=== PATIENT | male | born 1995 | race Caucasian/White ===

== ENCOUNTER 2023-05-26 13:27 | Observation (INO) | payer BC, OTHER ==
[2023-05-26 13:42] VITALS: RESP 18
[2023-05-26 14:45] LABS: BASO % 0.7 % (0-2.0); EOS % 2.6 % (0-4.5); HEMATOCRIT 42.8 % (35.4-49); HEMOGLOBIN 14.8 GM/dL (11.7-16.9); MCH 30.7 pg (25.7-33.7); MCHC 34.6 g/dl (32.0-35.9); MEAN CELL VOLUME 88.6 fl (80-96); MEAN PLT VOLUME 8.1 fl (7.5-11.1); MONO % 8.3 % (3.8-10.2); NEUT % 67.4 % (42.8-82.8); PLATELET COUNT 315 10^3/uL (134-434); RBC 4.84 M/mm3 (4.00-5.60); RDW 13.6 % (11.9-15.9); WHITE BLOOD COUNT 11.5 K/mm3 (4.0-10.0)
[2023-05-26 14:50] LABS: INR 1.08 (0.83-1.09); PROTHROMBIN TIME (PATIENT) 12.5 SEC (9.7-13.0)
[2023-05-26 14:53] LABS: ACTIVATED PTT 35.9 SECONDS (25.2-36.5); POTASSIUM 4.5 mmol/L (3.5-5.1)
[2023-05-26 14:55] LABS: CALCIUM 8.8 mg/dL (8.5-10.1)
[2023-05-26 14:56] LABS: ALBUMIN 4.1 g/dl (3.4-5.0); BLOOD UREA NITROGEN 14.3 mg/dL (7-18)
[2023-05-26 14:59] LABS: CREATININE 1.1 mg/dL (0.55-1.3)
[2023-05-26 15:00] LABS: BILIRUBIN,TOTAL 0.4 mg/dL (0.2-1)
[2023-05-26 15:01] LABS: TOT PROT 7.6 g/dl (6.4-8.2)
[2023-05-26] MEDS ORDERED: ACETAMINOPHEN 1000 MG/100 ML BAG IVPB ONE (15:24)
[2023-05-26] MEDS ORDERED: ACETAMINOPHEN INJECTION 100 ML IVPB ONE (15:27)
[2023-05-26] MEDS ORDERED: CEFTRIAXONE 1 GM/50 ML BAG ONE (17:45)
[2023-05-26] MEDS ORDERED: morphine CARPU-JECT 4 MG/1 ML DISP.SYRIN IVPUSH ONE (17:48)
[2023-05-26] MEDS ORDERED: SODIUM CHLORIDE 0.9% 500 ML INFUS.BAG IV ONE (17:48)
[2023-05-26] MEDS ORDERED: morphine SULFATE 4 MG/ML VIAL ONE (17:53)
[2023-05-26] MEDS ORDERED: KETOROLAC TROMETHAMINE 15 MG/ML VIAL IVPUSH ONE (18:47)
[2023-05-26] MEDS ORDERED: KETOROLAC TROMETHAMINE 15 MG/ML VIAL ONE (18:50)
[2023-05-26] MEDS ORDERED: SODIUM CHLORIDE 1,000 ML IV SCH (20:30)
[2023-05-26 21:45] VITALS: TEMP 98.1
[2023-05-26 23:25] VITALS: BMI 22.3
[2023-05-26] MEDS: ACETAMINOPHEN 1000 MG/100 ML BAG IVPB PRN (23:34)
[2023-05-27] MEDS ORDERED: KETOROLAC TROMETHAMINE 15 MG/ML VIAL IVPUSH PRN (02:00)
[2023-05-27 08:25] LABS: BASO % 0.6 % (0-2.0); EOS % 3.6 % (0-4.5); HEMATOCRIT 35.4 % (35.4-49); HEMOGLOBIN 12.6 GM/dL (11.7-16.9); LYMPH % 31.6 % (8-40); MCH 31.6 pg (25.7-33.7); MCHC 35.8 g/dl (32.0-35.9); MEAN CELL VOLUME 88.4 fl (80-96); MEAN PLT VOLUME 8.5 fl (7.5-11.1); MONO % 8.7 % (3.8-10.2); NEUT % 55.5 % (42.8-82.8); PLATELET COUNT 244 10^3/uL (134-434); RDW 13.3 % (11.9-15.9); WHITE BLOOD COUNT 8.7 K/mm3 (4.0-10.0)
[2023-05-27 08:52] LABS: BLOOD UREA NITROGEN 11.5 mg/dL (7-18); CALCIUM 8.4 mg/dL (8.5-10.1)
[2023-05-27 08:57] LABS: BILIRUBIN,TOTAL 0.6 mg/dL (0.2-1)
[2023-05-27 09:02] LABS: ALBUMIN 3.2 g/dl (3.4-5.0)
[2023-05-27 09:48] LABS: ERYTHROCYTE SEDIMENTATION RATE 12 mm/hr (0-10)
[2023-05-27] MEDS: ACETAMINOPHEN 1000 MG/100 ML BAG IVPB PRN (12:16)
[2023-05-27 13:35] VITALS: BP 123/64; PULSE 61
[2023-05-27] MEDS ORDERED: CEFTRIAXONE 1 GM in DEXTROSE 5%-WATER - 50 ML IVPB ONE (15:27)
[2023-05-27] MEDS ORDERED: CEFTRIAXONE 1 GM in DEXTROSE 5%-WATER - 50 ML IVPB SCH (18:00)
== END 2023-05-27 18:09 | disposition home or self-care (01) ==
LOC: JER 13:27 → JERBED 19:24 → J6S 22:34
PROVIDERS: ADMIT Internal Medicine; ATTEND Internal Medicine
PROC: 0D9Q3ZZ Drainage of Anus, Percutaneous Approach (ICD-10-PCS; principal; 2023-05-26)
PROC: 3E03329 Introduction of Other Anti-infective into Peripheral Vein, Percutaneous Approach (ICD-10-PCS; 2023-05-26)
PROC: 3E0333Z Introduction of Anti-inflammatory into Peripheral Vein, Percutaneous Approach (ICD-10-PCS; 2023-05-26)
PROC: 3E0337Z Introduction of Electrolytic and Water Balance Substance into Peripheral Vein, Percutaneous Approach (ICD-10-PCS; 2023-05-26)
DX: K61.0 Anal abscess (principal); Z87.891 Personal history of nicotine dependence; Z86.19 Personal history of other infectious and parasitic diseases
CPT/HCPCS: 36415; 72193-TC; 80053; 85025; 85610; 85651; 85730; 86140; 86850; 86900; 86901; 87070; 87076; 87186; 87205; 93005; 93010; 96365; 96367; 96375; 96376; 99285-25; G0378; Q9967

== ENCOUNTER 2023-12-21 10:48 | Emergency (ER) | payer OTHER ==
[2023-12-21 11:13] VITALS: TEMP 98.3; BMI 21.7
[2023-12-21] MEDS ORDERED: ACETAMINOPHEN INJECTION 100 ML IVPB ONE (12:22)
[2023-12-21] MEDS: ACETAMINOPHEN 1000 MG/100 ML BAG IVPB ONE (12:35)
[2023-12-21 12:42] LABS: BASO % 0.6 % (0-2.0); EOS % 1.3 % (0-4.5); HEMATOCRIT 44.2 % (35.4-49); HEMOGLOBIN 14.9 GM/dL (11.7-16.9); LYMPH % 26.8 % (8-40); MCH 30.7 pg (25.7-33.7); MCHC 33.7 g/dl (32.0-35.9); MEAN CELL VOLUME 91.1 fl (80-96); MONO % 6.7 % (3.8-10.2); NEUT % 64.6 % (42.8-82.8); PLATELET COUNT 326 10^3/uL (134-434); RBC 4.85 M/mm3 (4.00-5.60); RDW 13.7 % (11.9-15.9); WHITE BLOOD COUNT 6.2 K/mm3 (4.0-10.0)
[2023-12-21 12:59] LABS: INR 1.03 (0.83-1.09); PROTHROMBIN TIME (PATIENT) 11.9 SEC (9.7-13.0)
[2023-12-21 13:12] LABS: POTASSIUM 4.1 mmol/L (3.5-5.1)
[2023-12-21 13:14] LABS: CALCIUM 9.9 mg/dL (8.5-10.1)
[2023-12-21 13:15] LABS: ALBUMIN 4.7 g/dl (3.4-5.0); BLOOD UREA NITROGEN 15.1 mg/dL (7-18)
[2023-12-21 13:18] LABS: CREATININE 1.1 mg/dL (0.55-1.3)
[2023-12-21 13:20] LABS: BILIRUBIN,TOTAL 0.4 mg/dL (0.2-1)
[2023-12-21 13:47] VITALS: BP 109/61; PULSE 50; RESP 18
== END 2023-12-21 13:47 | disposition home or self-care (01) ==
LOC: JER 10:48
DX: K62.5 Hemorrhage of anus and rectum (principal)
CPT/HCPCS: 36415; 80053; 82272; 85025; 85610; 86850; 86900; 86901; 99283-25